=== PATIENT | male | born 1965 | race American Indian/Alaskan Native ===

== ENCOUNTER 2017-12-01 08:42 | Emergency (ER) | payer MEDICAID, OTHER ==
--- NOTE | 2017-12-01 09:41 | EDM.PDOC ---
ED HPI GENERAL MEDICAL PROBLEM - General Chief Complaint: General Stated Complaint: [id number] LUMP ON BACK OF HEAD Time Seen by Provider: 12/01/17 09:15 Source of Information: Reports: Patient History Limitations: Reports: No Limitations - History of Present Illness INITIAL COMMENTS - FREE TEXT/NARRATIVE: This 52 yo male patient reports to the ED with a 6 month history of a lump on the back of his head. The patient reports that it initially was very hard, but became more soft about 3 months ago. The patient reports increased discomfort when he brushes his hair or bumps that area. The patient denies any previous clinic visits and has not noticed any drainage from the area. The patient reports that he is from [place], came to [place] to look for a job, and does not have any clinic affiliation here in [place]. Onset: Unknown/Unsure (approximately 6 months ) Location: Reports: Head Quality: Reports: Ache, Dull Severity: Mild Improves with: Reports: None Worsens with: Reports: None Associated Symptoms: Reports: No Other Symptoms Head Pain Score (Numeric/FACES): 6 - Related Data Allergies Allergy/AdvReac Type Severity Reaction Status Date / Time No Known Allergies Allergy Verified 12/01/17 08:53 Home Meds: Home Meds . [No Known Home Meds] 12/01/17 [History] Past Medical History HEENT History: Reports: Hard of Hearing, Impaired Vision Cardiovascular History: Reports: Stents Respiratory History: Reports: None Gastrointestinal History: Reports: None Genitourinary History: Reports: None Musculoskeletal History: Reports: Arthritis Neurological History: Reports: None Psychiatric History: Reports: Learning Disability Endocrine/Metabolic History: Reports: None Hematologic History: Reports: None Immunologic History: Reports: None Oncologic (Cancer) History: Reports: None Dermatologic History: Reports: None - Past Surgical History Head Surgeries/Procedures: Reports: None HEENT Surgical History: Reports: Myringotomy w Tube(s) Social & Family History - Tobacco Use Years of Tobacco use: 40 Packs/Tins Daily: 0.5 - Caffeine Use Caffeine Use: Reports: Coffee, Soda, Tea - Recreational Drug Use Recreational Drug Use: No ED ROS GENERAL - Review of Systems Review Of Systems: ROS reveals no pertinent complaints other than HPI. ED EXAM, GENERAL - Physical Exam Exam: See Below Exam Limited By: No Limitations General Appearance: Alert, WD/WN, No Apparent Distress Eye Exam: Bilateral Eye: EOMI, Normal Inspection, PERRL Ears: Normal External Exam, Normal Canal, Hearing Grossly Normal, Normal TMs Nose: Normal Inspection, Normal Mucosa, No Blood Throat/Mouth: Normal Inspection, Normal Lips, Normal Teeth, Normal Gums, Normal Oropharynx, Normal Voice, No Airway Compromise Head: Atraumatic, Normocephalic Neck: Normal Inspection, Supple, Non-Tender, Full Range of Motion Respiratory/Chest: No Respiratory Distress, Lungs Clear, Normal Breath Sounds, No Accessory Muscle Use, Chest Non-Tender Cardiovascular: Normal Peripheral Pulses, Regular Rate, Rhythm, No Edema, No Gallop, No JVD, No Murmur, No Rub GI/Abdominal: Normal Bowel Sounds, Soft, Non-Tender, No Organomegaly, No Distention, No Abnormal Bruit, No Mass (Male) Exam: Deferred Rectal (Males) Exam: Deferred Back Exam: Normal Inspection, Full Range of Motion, NT Extremities: Normal Inspection, Normal Range of Motion, Non-Tender, Normal Capillary Refill, No Pedal Edema Neurological: Alert, Oriented, CN II-XII Intact, Normal Cognition, Normal Gait, Normal Reflexes, No Motor/Sensory Deficits Psychiatric: Normal Affect, Normal Mood Skin Exam: Other (abscess to the right posterior scalp) Lymphatic: No Adenopathy ED I&D PROCEDURES - I&D Site: Right posterior scalp Skin prep: Isopropyl Alcohol (Alcohol) Area Incised With: Needle Drainage: Purulent, Bloody, Small Amount Probed to Break Up Loculations: Yes Packed With: None Sterile Dressinx4(s) Complications: No Course - Vital Signs Last Recorded V/S: Last Vital Signs Temp 35.7 C 12/01/17 08:48 Pulse 103 H 12/01/17 08:48 Resp 16 12/01/17 08:48 BP 125/81 12/01/17 08:48 Pulse Ox 97 12/01/17 08:48 - Orders/Labs/Meds Orders: Active Orders 24 hr Category Date Time Status CULTURE WOUND [RM] Stat Lab 12/01/17 09:36 Ordered Departure - Departure Time of Disposition: 09:38 Disposition: Home, Self-Care 01 Condition: Fair Clinical Impression: Abscess, scalp - Discharge Information *PRESCRIPTION DRUG MONITORING PROGRAM REVIEWED*: Not Applicable *COPY OF PRESCRIPTION DRUG MONITORING REPORT IN PATIENT CHRISTINA: Not Applicable Instructions: Skin Abscess, [id number] Care Plan Goals: The patient was advised of the examination results during the visit. The abscess was drained while in the ED. A sample of the drainage was sent to lab for further analysis. The patient will be contacted if the antibiotic needs to be changed. The patient was discharged with a script for Keflex (500 mg) #30 to take 1 by mouth 3 times per day for 10 days. If the patient has any additional symptoms or concerns, the patient should follow-up with his primary care facility or return to the emergency department. - My Orders Last 24 Hours: My Active Orders 12/01/17 09:36 CULTURE WOUND [RM] Stat - Assessment/Plan Last 24 Hours: My Active Orders 12/01/17 09:36 CULTURE WOUND [RM] Stat
== END 2017-12-01 09:53 | disposition home or self-care (01) ==
LOC: DL.ED 08:42
DX: L02.811 Cutaneous abscess of head [any part, except face] (principal)
CPT/HCPCS: 10060; 87070; 99283